=== PATIENT | female | born 1955 | race Caucasian/White ===

== ENCOUNTER → 2016-08-30 | Outpatient (REF) | payer OTHER ==
[~2016-08-30] MED LIST: ALEVE
== END ==
LOC: M LAB REF 16:45
PROVIDERS: ATTEND Specialist
DX: Z01.419 Encounter for gynecological examination (general) (routine) without abnormal findings (principal); Z11.51 Encounter for screening for human papillomavirus (HPV); N95.2 Postmenopausal atrophic vaginitis

== ENCOUNTER → 2017-01-12 | Outpatient (CLI) | payer OTHER ==
--- NOTE | 2017-01-12 11:23 | REP ---
Clinical: Pain. Technique: AP, lateral, bilateral oblique views of the left hand. Findings: Age-related findings are appreciated along with mild arthritic degenerative changes involving the interphalangeal joints including joint space narrowing and subtle marginal early spurring primarily involving the distal interphalangeal joints. Evaluation of the wrist demonstrates increase sclerosis to the radial surface as well as subtle cortical irregularity and degenerative findings at the first carpometacarpal joint. No acute fracture dislocation. Impression: Mild arthritic degenerative changes. Signed by Leroy Dunn MD 01/12/2017 11:14 A
== END ==
LOC: M WUC 11:00
PROVIDERS: ATTEND Physician Assistant
DX: M19.042 Primary osteoarthritis, left hand (principal)

== ENCOUNTER → 2018-10-22 | Outpatient (CLI) | payer OTHER ==
--- NOTE | 2018-10-22 17:10 | REP ---
Clinical: Right shoulder pain. Technique: Internal rotation, external rotation, and Y view of the right shoulder. Findings: Age-related osteopenia is appreciated. Cortical irregularity and spurring at the acromioclavicular joint is appreciated. The glenoid appears intact and relatively normal for age. No periarticular calcifications are identified. Surrounding soft tissues are within normal limits. Impression: Age-related osteopenia and arthritic changes primarily involving the acromioclavicular joint. Electronically Signed by Leroy Dunn MD 10/22/2018 05:01 P
== END ==
LOC: M WUC 16:45
PROVIDERS: ATTEND Physician Assistant
DX: M85.811 Other specified disorders of bone density and structure, right shoulder (principal); M19.011 Primary osteoarthritis, right shoulder

== ENCOUNTER → 2019-01-07 | Outpatient (REF) | payer MEDICARE, OTHER ==
[2019-01-10 14:10] LABS: HPV LOW VOL RFLX Negative (Negative)
== END ==
LOC: M LAB REF 19:36
PROVIDERS: ATTEND Specialist
DX: Z12.4 Encounter for screening for malignant neoplasm of cervix (principal)
CPT/HCPCS: 87624; G0123

== ENCOUNTER → 2019-12-13 | Outpatient (CLI) | payer MEDICARE | LOC: M LABSMTC 11:00 | PROVIDERS: ATTEND Orthopaedic Surgery | DX: Z11.59 Encounter for screening for other viral diseases (principal) | CPT/HCPCS: C9803; U0003 ==

== ENCOUNTER → 2020-02-27 | Outpatient (CLI) | payer MEDICARE | LOC: M LABSMTC 11:14 | PROVIDERS: ATTEND Orthopaedic Surgery | DX: Z01.812 Encounter for preprocedural laboratory examination (principal); Z20.828 Contact with and (suspected) exposure to other viral communicable diseases ==

== ENCOUNTER → 2020-02-29 | Outpatient (CLI) | payer MEDICARE ==
[2020-02-29 13:27] LABS: HEMATOCRIT 44.7 % (36.0-47.0); HEMOGLOBIN 14.3 g/dl (12.0-15.5); PLATELET COUNT, AUTOMATED 236 10^3/uL (150-450)
[2020-02-29 13:58] LABS: BLOOD UREA NITROGEN 28 MG/DL (7-18); CALCIUM LEVEL 9.7 MG/DL (8.8-10.2); CARBON DIOXIDE LEVEL 28 MEQ/L (21-32); CHLORIDE LEVEL 107 MEQ/L (98-107); CREATININE FOR GFR 0.83 MG/DL (0.55-1.30); GLOMERULAR FILTRATION RATE > 60.0 (>45); GLUCOSE, FASTING 78 MG/DL (70-100); POTASSIUM SERUM 4.8 MEQ/L (3.5-5.1); SODIUM LEVEL 140 MEQ/L (136-145)
== END ==
LOC: M WUC 08:45
PROVIDERS: ATTEND Orthopaedic Surgery
DX: Z01.812 Encounter for preprocedural laboratory examination (principal)

== ENCOUNTER → 2020-09-11 | Outpatient (REF) | payer MEDICARE | LOC: M SFHCWAGY 17:28 | PROVIDERS: ATTEND Specialist | DX: Z01.419 Encounter for gynecological examination (general) (routine) without abnormal findings (principal); N95.2 Postmenopausal atrophic vaginitis | CPT/HCPCS: 87624; G0101; G0123 ==

== ENCOUNTER → 2020-09-21 | Outpatient (CLI) | payer MEDICARE ==
--- NOTE | 2020-09-21 14:35 | REPMRS ---
Patient History The patient states she had a clinical breast exam in 08/2020. Patient is postmenopausal. No known family history of cancer. No Hormone Replacement Therapy Patient states no breast complaints today. Patient has signed MRS History Sheet. Digital Woman Screen Mammo: September 21, 2020 - Exam #: [id number] Bilateral CC and MLO view(s) were taken. Technologist: Blanche Rayo, Technologist Prior study comparison: January 07, 2019, bilateral digital mammo screening bilat, performed at [facility]. December 15, 2017, bilateral digital mammo screening bilat, performed at [facility]. September 09, 2016, bilateral digital mammo screening bilat, performed at [facility]. FINDINGS: The breast tissue is heterogeneously dense. This may lower the sensitivity of mammography. The Volpara volumetric breast density category is: C. There is a moderate amount of heterogeneously dense fibroglandular tissue which is fairly symmetric. There is no interval development of dominant mass, architectural distortion, or grouped microcalcification typical of malignancy. There has been no change in the appearance of the mammogram from the prior studies. 3-D tomosynthesis shows no additional findings. Assessment: BI-RADS/ACR category 1 mammogram. Negative Mammogram. Recommendation Routine screening mammogram of both breasts in 1 year (for women over age 40). This patient's [facility] Lifetime Breast Cancer RIsk is estimated at 7.6 %. This mammogram was interpreted with the aid of an FDA-approved computer-aided dectection system. Electronically Signed By: Kenny To MD 09/21/20 [id number]
== END ==
LOC: M WHC 13:49
PROVIDERS: ATTEND Specialist
DX: Z12.31 Encounter for screening mammogram for malignant neoplasm of breast (principal)

== ENCOUNTER → 2021-04-21 | Outpatient (CLI) | payer MEDICARE | LOC: M PLAIMG 08:10 | PROVIDERS: ATTEND Orthopaedic Surgery | DX: M25.711 Osteophyte, right shoulder (principal); M25.511 Pain in right shoulder ==

== ENCOUNTER → 2021-11-18 | Outpatient (CLI) | payer MEDICARE | LOC: M LABSMTC 09:29 | PROVIDERS: ATTEND Orthopaedic Surgery | DX: Z01.812 Encounter for preprocedural laboratory examination (principal) ==

== ENCOUNTER → 2022-07-19 | Outpatient (REF) | payer MEDICARE | LOC: M SFHCWAGY 16:56 | PROVIDERS: ATTEND Specialist | DX: Z01.419 Encounter for gynecological examination (general) (routine) without abnormal findings (principal) | CPT/HCPCS: 87624; G0123 ==

== ENCOUNTER → 2022-07-19 | Outpatient (CLI) | payer MEDICARE | LOC: M WHC 10:30 | PROVIDERS: ATTEND Specialist | DX: Z12.31 Encounter for screening mammogram for malignant neoplasm of breast (principal) ==

== ENCOUNTER → 2022-09-28 | Outpatient (CLI) | payer MEDICARE | LOC: M WHC 09:34 | PROVIDERS: ATTEND Physician Assistant | DX: Z78.0 Asymptomatic menopausal state (principal) ==

== ENCOUNTER 2023-05-22 09:28 | Day surgery (SDC) | payer MEDICARE ==
[~2023-05-22] VITALS: Ht 154.9 cm; Wt 63.8 kg
[2023-05-22] MEDS: NS 1,000 ML IV ONE (06:00)
[~2023-05-22 09:28] MED LIST changes: +IBAN150T6 PO; +METO1TAB7 PO; +PANT40TA29 PO; +ROSU10TA6 PO
[2023-05-22] MEDS ORDERED: propofoL 500 MG/50 ML VIAL As Ordered ONE (12:21)
[2023-05-22] MEDS ORDERED: LIDOCAINE 2% 100MG/5ML SDV (FOR ANES.) As Ordered ONE (12:21)
[2023-05-22] MEDS ORDERED: fentaNYL 100 MCG/2 ML INJECTION As Ordered ONE (12:21)
[2023-05-22] MEDS ORDERED: ePHEDrine SULFATE 25 MG/5 ML(5MG/ML) SYRINGE As Ordered ONE (12:32)
[2023-05-22] MEDS ORDERED: GLYCOPYRROLATE INJ 0.2 MG/ML 2 ML VIAL As Ordered ONE (12:44)
[2023-05-22 13:03] VITALS: TEMP 96
[2023-05-22 13:27] VITALS: BP 102/65; O2SAT 99
== END 2023-05-22 13:40 | disposition home or self-care (01) ==
LOC: M OPP 09:28
PROVIDERS: ATTEND Internal Medicine Gastroenterology
DX: Z12.11 Encounter for screening for malignant neoplasm of colon (principal); K52.9 Noninfective gastroenteritis and colitis, unspecified; K56.699 Other intestinal obstruction unspecified as to partial versus complete obstruction; K64.8 Other hemorrhoids; K64.4 Residual hemorrhoidal skin tags; K22.89 Other specified disease of esophagus; K29.70 Gastritis, unspecified, without bleeding; K29.80 Duodenitis without bleeding; K30 Functional dyspepsia; R11.2 Nausea with vomiting, unspecified; Z79.02 Long term (current) use of antithrombotics/antiplatelets; Z79.83 Long term (current) use of bisphosphonates; Z79.899 Other long term (current) drug therapy
CPT/HCPCS: 43239; 45380; 45385; 88305; J3010

== ENCOUNTER → 2023-06-06 | Outpatient (REF) | payer MEDICARE ==
[2023-06-06 19:41] LABS: TOTAL PROTEIN,RANDOM URINE 8.1 MG/DL (0.0-14.0)
[2023-06-06 19:46] LABS: CREATININE,RANDOM URINE 85.9 MG/DL
== END ==
LOC: M LAB REF 17:19
PROVIDERS: ATTEND Internal Medicine Nephrology
DX: R80.9 Proteinuria, unspecified (principal)

== ENCOUNTER 2024-03-04 11:02 | Observation (INO) | payer MEDICARE ==
[~2024-03-04] VITALS: Ht 154.9 cm; Wt 68.0 kg
[~2024-03-04 11:02] MED LIST changes: +ACETAMINOPHEN 1000MG 100ML IV BAG As Ordered ONE; +IBAN150T10 PO; -IBAN150T6 PO; +KETOROLAC 60MG 2ML VIAL As Ordered ONE; +LIDOCAINE 2% 100MG/5ML SDV (FOR ANES.) As Ordered ONE; +METO1TAB32 PO; +MIDAZOLAM INJ 2MG/2ML VIAL As Ordered ONE; +ONDANSETRON 4MG 2ML VIAL As Ordered ONE; +ROCURONIUM BROMIDE 50MG/5ML VIAL As Ordered ONE; -ROSU10TA6 PO; +ROSU10TA61 PO; +SUGAMMADEX SODIUM 500 MG/5 ML VIAL (BRIDION) As Ordered ONE; +fentaNYL 100 MCG/2 ML INJECTION As Ordered ONE; +propofoL 200 MG/20 ML VIAL As Ordered ONE
[2024-03-04 11:43] LABS: HEMATOCRIT 42.3 % (36.0-47.0); HEMOGLOBIN 13.5 g/dl (12.0-15.5); MEAN CORPUSCULAR HEMOGLOBIN 27.8 pg (27.0-33.0); MEAN CORPUSCULAR HGB CONC 31.9 g/dl (32.0-36.5); MEAN CORPUSCULAR VOLUME 87.2 fl (80.0-96.0); PLATELET COUNT, AUTOMATED 218 10^3/uL (150-450); RED BLOOD COUNT 4.85 10^6/uL (4.00-5.40); WHITE BLOOD COUNT 6.7 10^3/uL (4.0-10.0)
[2024-03-04] MEDS: NS 1,000 ML IV SCH (11:44)
[2024-03-04] MEDS: ceFAZolin SOD 2 GM in IV 1 EA IV ONE (12:07)
[2024-03-04] MEDS ORDERED: GLYCOPYRROLATE INJ 0.2 MG/ML 2 ML VIAL As Ordered ONE (12:35)
[2024-03-04] MEDS ORDERED: ePHEDrine SULFATE 25 MG/5 ML(5MG/ML) SYRINGE As Ordered ONE (12:35)
[2024-03-04] MEDS ORDERED: HYDROmorphone HCL 2MG/ML 1ML VIAL As Ordered ONE (12:58)
[2024-03-04] MEDS ORDERED: fentaNYL 100 MCG/2 ML INJECTION IV PRN (13:45)
[2024-03-04] MEDS ORDERED: NS 1,000 ML IV SCH (13:45)
[2024-03-04] MEDS ORDERED: HYDROMORPHONE HCL 0.5 MG/ 0.5 ML SYRINGE IV PRN (13:45)
[2024-03-04] MEDS ORDERED: PERCOCET 5MG/325MG TAB PO PRN (14:10)
[2024-03-04] MEDS ORDERED: KETOROLAC 30 MG/ML 1ML VIAL IV PRN (14:10)
[2024-03-04] MEDS ORDERED: ONDANSETRON 4MG 2ML VIAL IV PRN (14:10)
[2024-03-04] MEDS ORDERED: LR 1,000 ML IV SCH (14:10)
[2024-03-04] MEDS ORDERED: COLA100C5 PO (14:12)
[2024-03-04] MEDS ORDERED: OXYC1TAB23 PO (14:12)
[2024-03-04] MEDS ORDERED: IBUP-1022 PO (14:12)
[2024-03-04] MEDS: oxyCODONE 5MG TAB PO PRN (14:29)
[2024-03-04] MEDS: ONDANSETRON 4MG 2ML VIAL IV PRN (14:30)
[2024-03-04 15:53] VITALS: BP 118/61; TEMP 97.2; O2SAT 96
[2024-03-04] MEDS ORDERED: DOCUSATE SODIUM 100MG CAPSULE PO SCH (21:00)
== END 2024-03-04 15:30 | disposition home or self-care (01) ==
LOC: M SDC 11:02 → M RR INP 14:08
PROVIDERS: ADMIT Specialist; ATTEND Specialist
DX: N80.03 Adenomyosis of the uterus (principal); D25.2 Subserosal leiomyoma of uterus; N84.1 Polyp of cervix uteri; N72 Inflammatory disease of cervix uteri; R10.2 Pelvic and perineal pain; Z79.899 Other long term (current) drug therapy
CPT/HCPCS: 36415; 58571; 85027; 86850; 88307; J0131; J0665; J0690; J1100; J1171; J1596; J1885; J2250; J2405; J3010; S2900

== ENCOUNTER 2025-02-20 09:29 | Outpatient (RCR) | payer MEDICARE ==
[~2025-02-20 09:29] MED LIST changes: -ACETAMINOPHEN 1000MG 100ML IV BAG As Ordered ONE; +COLA100C5 PO; +IBUP600T42 PO; -KETOROLAC 60MG 2ML VIAL As Ordered ONE; -LIDOCAINE 2% 100MG/5ML SDV (FOR ANES.) As Ordered ONE; -MIDAZOLAM INJ 2MG/2ML VIAL As Ordered ONE; -ONDANSETRON 4MG 2ML VIAL As Ordered ONE; +OXYC1TAB23 PO; -ROCURONIUM BROMIDE 50MG/5ML VIAL As Ordered ONE; -ROSU10TA61 PO; +ROSU10TA90 PO; -SUGAMMADEX SODIUM 500 MG/5 ML VIAL (BRIDION) As Ordered ONE; -fentaNYL 100 MCG/2 ML INJECTION As Ordered ONE; -propofoL 200 MG/20 ML VIAL As Ordered ONE
== END 2025-02-28 ==
LOC: M PT 09:29
PROVIDERS: ATTEND Specialist
DX: R22.41 Localized swelling, mass and lump, right lower limb (principal)